=== PATIENT | female | born 1940 | race Caucasian/White ===

== ENCOUNTER 2020-07-27 06:45 | Observation (INO) ==
--- NOTE | 2020-06-30 15:35 | PAT Medication Instructions ---
Medication Instructions Date of Service June 30, 2020 Home Medications amlodipine [Norvasc] 10 mg PO QAM ascorbate calcium (vitamin C) [Aby-C] 500 mg PO QPM aspirin 81 mg PO QPM cholecalciferol (vitamin D3) [Vitamin D3] 125 mcg PO QPM levothyroxine 88 mcg PO QAM magnesium 250 mg PO QPM metformin 500 mg PO QID multivitamin 1 tab PO QPM potassium chloride 20 meq PO QPM rosuvastatin [Crestor] 5 mg PO QPM valsartan [Diovan] 320 mg PO QPM DO NOT take the morning of surgery metformin 500 mg PO QID Take morning of surgery With a small sip of water, OTHERWISE NOTHING TO EAT OR DRINK AFTER MIDNIGHT: amlodipine [Norvasc] 10 mg PO QAM levothyroxine 88 mcg PO QAM Take evening before surgery ascorbate calcium (vitamin C) [Aby-C] 500 mg PO QPM aspirin 81 mg PO QPM cholecalciferol (vitamin D3) [Vitamin D3] 125 mcg PO QPM magnesium 250 mg PO QPM metformin 500 mg PO QID multivitamin 1 tab PO QPM potassium chloride 20 meq PO QPM rosuvastatin [Crestor] 5 mg PO QPM valsartan [Diovan] 320 mg PO QPM Other Notes If you have any questions please call us at [phone] or [phone] or [phone] or [phone]
--- NOTE | 2020-07-03 13:50 | Anesthesiology Consultation ---
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 Denies any recent travel. No known Covid positive contacts or Covid related symptoms. Educated patient to follow up with surgeon's office regarding Covid testing. Educated on importance of self quarantining, social distancing and wearing mask in public both for the patient and household contacts. Teaching & Discussion Pre-Anesthesia Teaching/Discussion Notes: Instructed NPO after midnight before surgery,except medications with 15 cc of water. Medication instructions provided according to the [facility] guidelines. History Surgery Operation Date: 07/27/20 11:55 Proposed Procedures p Right Upper Arm Excision Intramusclar Lipoma - Anthony Dumont M.D. Height/Weight Height: 5 ft 2 in Weight: 73.1 kg Allergies Allergy/AdvReac Type Severity Reaction Status Date / Time succinylcholine Allergy Severe BREATHING Verified 06/29/20 11:56 [From Anectine] STOPPED Sulfa (Sulfonamide Allergy Intermediate Hives Verified 06/29/20 11:56 Antibiotics) Medications Home Medications Medication Instructions Recorded Confirmed Last Taken amlodipine [Norvasc] 10 mg PO QAM 06/29/20 06/29/20 Unknown ascorbate calcium (vitamin C) 500 mg PO QPM 06/29/20 06/29/20 Unknown [Aby-C] aspirin 81 mg PO QPM 06/29/20 06/29/20 Unknown cholecalciferol (vitamin D3) 125 mcg PO QPM 06/29/20 06/29/20 Unknown [Vitamin D3] levothyroxine 88 mcg PO QAM 06/29/20 06/29/20 Unknown magnesium 250 mg PO QPM 06/29/20 06/29/20 Unknown metformin 500 mg PO QID 06/29/20 06/29/20 Unknown multivitamin 1 tab PO QPM 06/29/20 06/29/20 Unknown potassium chloride 20 meq PO QPM 06/29/20 06/29/20 Unknown rosuvastatin [Crestor] 5 mg PO QPM 06/29/20 06/29/20 Unknown valsartan [Diovan] 320 mg PO QPM 06/29/20 06/29/20 Unknown Dulcolax (bisacodyl) See Rx Instructions .ROUTE .COMPLEX 07/03/20 07/03/20 Unk nown Aby-C See Rx Instructions .ROUTE .COMPLEX 07/03/20 07/03/20 Unknown biotin See Rx Instructions .ROUTE .COMPLEX 07/03/20 07/03/20 Unknown [id number] See Rx Instructions .ROUTE .COMPLEX 07/03/20 07/03/20 Unknown Past Medical History Medical History (Updated 07/04/20 @ 09:30 by Greer Reynolds PA-C) Elevated C-reactive protein REASON FOR CRESTOR- DENIES HISTORY OF HYPERLIPIDEMIA Hx of glaucoma STABLE AND CONTROLLED HX: breast cancer 2006 (LEFT/RT BREAST CANCER)- NO CHEMO OR XRT NEEDED Hypertension Hypothyroidism Mitral valve prolapse FOLLOWS WITH [facility] ([facility])- MILD - NO MURMUR - NO MVP NOTED ON 06/2019 ECHO- ONLY MILD TO MODERATE MR Osteoarthritis Prediabetes Scoliosis Exercise / Class Metabolic Activity II 4-5 Yardwork/Stairs/Walk up hill (ONE FLIGHT OF STAIRS - NO CHEST PAIN OR SOB ) Past Family History Family History Brother Family history of diabetes mellitus Grandfather (Paternal) Family history of diabetes mellitus Past Surgical History Surgical History H/O eye surgery RT/LEFT LASER (TREATED FOR ELEVATED PRESSURE) History of anesthesia reaction SEE ALLERGIES History of appendectomy History of bilateral tubal ligation History of colonoscopy History of dilatation and curettage History of mastectomy BILATERAL WITH RECONSTRUCTION (BILATERAL BREAST IMPLANTS) Strabismus REPAIRED LEFT EYE [place] teeth removed Past Anesthesia History No Hx of Anesthesia Complications, No Family Hx of Anesthesia Complications and Pseudocholinesterase Deficiency History of PONV No Hx of PONV and Hx of Motion Sickness (CAR SICKNESS IN THE PAST ) Social History Smoking Status: Never smoker Do You Dip or Chew Tobacco: No Hx Alcohol Use: Yes alcohol intake frequency: holidays/special occasions only Hx Substance Use: No substance use type: does not use Review of Systems Hx of possible blood clot s/p childbirth- no significant AC needed- no issues since Patient denies chest pain, shortness of breath, dyspnea on exertion, reflux, cough, wheezing, palpitations. No hx of seizures, stroke, OR, apnea/snoring. No hx of blood transfusions Physical Exam Vital Signs VITALS BP 148/81 P 59 TEMP 98.0 SP02 97% RESP 16 Constitutional no acute distress ENMT Mouth: no TMJ clicking Thyromental Distance: > or= 3.5 Finger Breadths (3.5) Mallampati Class: II Crowns to molars Neck + limited neck extension (mild ) Respiratory normal respiratory effort; no respiratory distress Auscultation: lungs clear to auscultation bilaterally; no wheezes Cardiovascular Rate/Rhythm: regular rate and regular rhythm Heart Sounds: no murmur Vessels: no carotid bruit Musculoskeletal Spine: no pain with cervical ROM Neurologic moves all extremities Psychiatric Orientation: alert Testing Laboratory Results 07/03/20 14:01 07/03/20 14:01 Hemoglobin A1c 6.0 % (4.5-5.6) H 07/03/20 14:01 Urine Color Yellow 07/03/20 14:01 Urine Appearance Clear (Clear) 07/03/20 14:01 Urine pH 6.5 (4.5-7.5) 07/03/20 14:01 Ur Specific [place] 1.019 (1.000-1.030) 07/03/20 14:01 Urine Protein Negative (Negative) 07/03/20 14:01 Urine Glucose (UA) Negative (Negative) 07/03/20 14:01 Urine Ketones Negative (Negative) 07/03/20 14:01 Urine Nitrite Negative (Negative) 07/03/20 14:01 Ur Leukocyte Esterase Trace (Negative) H 07/03/20 14:01 Urine WBC (Auto) 1-5 /hpf (0-5) 07/03/20 14:01 Urine RBC (Auto) 0-4 /hpf (0-4) 07/03/20 14:01 U Hyaline Cast (Auto) 0 /lpf (0-5) 07/03/20 14:01 U Epithel Cells (Auto) 5-10 /lpf (0-5) H 07/03/20 14:01 Urine Bacteria (Auto) Negative (Negative) 10/12/20 14:01 Electrocardiogram Date: 07/03/20 Findings: + SB @ (56) Voltage criteria for LVH. Echocardiogram Date: 07/09/19 EF: 60% LV Function: normal RWMA: + none MV, AV both mildly thickened. Mild AR. Mild to moderate MR. Other Testing Carotid doppler 10/13/19= Mild right ICA disease with <50% stenosis to proximal ICA. Mild left ICA disease with <50% stenosis to proximal ICA. Vertebral flow was normal. Repeat carotid study in two years
[2020-07-03 14:27] LABS: Basophils # (auto) 0.03 K/uL (0-0.2); Basophils % (auto) 0.3 %; Eosinophils # (auto) 0.18 K/uL (0-0.5); Eosinophils % (auto) 1.9 %; Hematocrit (blood only) 44.3 % (37-47); Hemoglobin 14.6 g/dL (12.0-16.0); Immature Granulocytes # (auto) 0.02 K/uL (0.00-0.02); Immature Granulocytes % (auto) 0.2 %; Lymphocytes # (auto) 2.04 K/uL (1.2-3.4); Lymphocytes % (auto) 21.1 %; Mean Corpuscular Hemoglobin 30.5 pg (25-34); Mean Corpuscular Volume 92.5 fL (80-100); Mean Platelet Volume 10.7 fL (7.4-10.4); Monocytes # (auto) 0.73 K/uL (0.11-0.59); Monocytes % (auto) 7.5 %; Neutrophils # (auto) 6.67 K/uL (1.4-6.5); Platelet Count 264 K/uL (130-400); RDW Standard Deviation 47.6 fL (36.4-46.3); Red Blood Count 4.79 M/uL (4.2-5.4); White Blood Count 9.67 K/uL (4.8-10.8)
[2020-07-03 14:35] LABS: BUN Creatinine Ratio 25.4 (10-20); Calcium 8.8 mg/dl (8.5-10.1); Creatinine Clr Calc Pharmacy 64.8 ml/min; Est GFR (African American) 97.6; Est GFR (Non-African American) 84.2; Potassium 3.6 mmol/L (3.5-5.1)
[2020-07-03 14:36] LABS: Appearance Urine Clear (Clear); Bacteria Urine Automated Negative (Negative); Bilirubin Urine Negative (Negative); Blood Urine Negative (Negative); Cast Urine Automated 0 /lpf (0-5); Color Urine Yellow; Glucose Urine UA Negative (Negative); Ketones Urine Negative (Negative); Leukocyte Esterase Urine Trace (Negative); Nitrite Urine Negative (Negative); Protein Urine Negative (Negative); RBC Urine Automated 0-4 /hpf (0-4); Specific Gravity Urine 1.019 (1.000-1.030); Urobilinogen Urine Negative (Negative); pH Urine 6.5 (4.5-7.5)
--- NOTE | 2020-07-03 16:15 | Electrocardiogram Report ---
Test Reason : Blood Pressure : / mmHG Vent. Rate : 056 BPM Atrial Rate : 056 BPM P-R Int : 174 ms QRS Dur : 082 ms QT Int : 456 ms P-R-T Axes : 055 078 063 degrees QTc Int : 440 ms Sinus bradycardia Voltage criteria for left ventricular hypertrophy Abnormal ECG No previous ECGs available Confirmed by Everton Reveles ([id number]) on 07/03/2020 4:14:40 PM Referred By: Anthony Dumont Confirmed By:Everton Reveles
[2020-07-04 06:30] LABS: Estimated Average Glucose 126 mg/dl
--- NOTE | 2020-07-26 17:10 | History & Physical Report ---
Date of Service July 26, 2020 Assessment & Plan (1) Intramuscular lipoma: She has a very large intramuscular lipoma in her right upper arm that is deep to the biceps muscle and directly adjacent to her neurovascular bundle, including the brachial artery. This seems to have rapidly enlarged over the past few months. This is very bothersome to her, and she would like it removed. I think this is very reasonable, but stressed to her that with the proximity of the neurovascular bundle, there is risk of injury to the structures, and she understands that. We discussed the relative aggressiveness of intramuscular versus subcutaneous lipomas. I do think that this is still benign, but has a little higher risk of local recurrence and rapid enlargement. I think we should do this over the hospital and keep her overnight for drain placement and observation. Risks, benefits, and alternatives of surgery were explained in detail. The surgical procedure, as well as postoperative recovery and rehabilitation, was also explained in detail. Risks include bleeding; infection; damage to surrounding structures such as nerves, blood vessels, and tendons that run in the area; persistent pain, numbness, weakness, or stiffness; mass recurrence; or need for further surgery. The patient understands all of this and wishes to proceed with surgery. Preoperative workup was completed today, and informed consent was obtained. History of Present Illness Chief Complaint: Right upper arm painful enlarging mass Primary Care Provider: Charbel Woodall Ms. Loza is a 80-year-old [id number] female who comes in today for initial evaluation of fullness and a rapidly growing mass in her right upper arm. She had a similar mass on the medial aspect of her right elbow that was excised about 3 years ago in 2017 at [facility]. Reportedly, this was a benign lipoma. It is not clear whether this was intramuscular subcutaneous, but based on her incision and description of the mass, I suspect it was subcutaneous. She then had recurrence of the mass in that area fairly shortly thereafter, and that has not changed much in size. Then over the past few months, she has noted rapidly enlarging fullness in her upper arm. It causes a "pulling" sensation in her upper arm with range of motion, but not a lot of pain. She denies any numbness or weakness in her lower arm or hand. Allergies Allergy/AdvReac Type Severity Reaction Status Date / Time succinylcholine Allergy Severe BREATHING Verified 06/29/20 11:56 [From Anectine] STOPPED Sulfa (Sulfonamide Allergy Intermediate Hives Verified 06/29/20 11:56 Antibiotics) Home Medications Home Medications Medication Instructions Recorded Confirmed Type amlodipine [Norvasc] 10 mg PO QAM 06/29/20 06/29/20 History ascorbate calcium (vitamin C) 500 mg PO QPM 06/29/20 06/29/20 History [Aby-C] aspirin 81 mg PO QPM 06/29/20 06/29/20 History cholecalciferol (vitamin D3) 125 mcg PO QPM 06/29/20 06/29/20 History [Vitamin D3] levothyroxine 88 mcg PO QAM 06/29/20 06/29/20 History magnesium 250 mg PO QPM 06/29/20 06/29/20 History metformin 500 mg PO QID 06/29/20 06/29/20 History multivitamin 1 tab PO QPM 06/29/20 06/29/20 History potassium chloride 20 meq PO QPM 06/29/20 06/29/20 History rosuvastatin [Crestor] 5 mg PO QPM 06/29/20 06/29/20 History valsartan [Diovan] 320 mg PO QPM 06/29/20 06/29/20 History Dulcolax (bisacodyl) See Rx Instructions .ROUTE .COMPLEX 07/03/20 07/03/20 History Aby-C See Rx Instructions .ROUTE .COMPLEX 07/03/20 07/03/20 History biotin See Rx Instructions .ROUTE .COMPLEX 07/03/20 07/03/20 History [id number] See Rx Instructions .ROUTE .COMPLEX 07/03/20 07/03/20 History Past Med/Surg History Medical History (Updated 07/26/20 @ 17:10 by Anthony Dumont M.D.) Elevated C-reactive protein REASON FOR CRESTOR- DENIES HISTORY OF HYPERLIPIDEMIA Hx of glaucoma STABLE AND CONTROLLED HX: breast cancer 2006 (LEFT/RT BREAST CANCER)- NO CHEMO OR XRT NEEDED Hypertension Hypothyroidism Mitral valve prolapse FOLLOWS WITH [facility] (SABATINE)- MILD - NO MURMUR - NO MVP NOTED ON 06/2019 ECHO- ONLY MILD TO MODERATE MR Osteoarthritis Prediabetes Scoliosis Surgical History H/O eye surgery RT/LEFT LASER (TREATED FOR ELEVATED PRESSURE) History of anesthesia reaction SEE ALLERGIES History of appendectomy History of bilateral tubal ligation History of colonoscopy History of dilatation and curettage History of mastectomy BILATERAL WITH RECONSTRUCTION (BILATERAL BREAST IMPLANTS) Strabismus REPAIRED LEFT EYE [place] teeth removed Family History Brother Family history of diabetes mellitus Grandfather (Paternal) Family history of diabetes mellitus Social History Smoking Status: Never smoker Second Hand Exposure: No; Do You Dip or Chew Tobacco: No; Tobacco Cessation Education Requested by Patient: No Hx Alcohol Use: Yes Hx Substance Use: No Preferred Language: Citizen Of [place] School Photographer Required: No Beliefs That Will Affect Care: None Current Living Situation: Spouse Feels Safe at Home: Yes Safety Concerns: Feels Safe At This Time Assistive Devices: Glasses Physical Exam Physical Exam: General: The patient appears well developed and well nourished. Awake, alert, and oriented x 3. Appropriate mood and affect. Normal gait and station. Normal coordination and balance. Skin: The skin over the right upper arm and elbow shows no lesion or erythema. No obvious skin changes over the mass. Inspection/Palpation: Visual inspection reveals enlargement of the anterior medial aspect of the antecubital fossa consistent with a lipoma. This mass is anterior to her previous very small transverse incision more along the medial elbow. She has indistinct fullness of the anterior compartment in her upper arm. There is no palpable elbow joint effusion. No focal tenderness to palpation. Range of Motion: There is full symmetric range of motion of the elbow in flexion/extension and forearm rotation. Stability: There is no gross ligamentous laxity. Strength: There is full strength of the elbow, wrist, and hand. Sensation: The patient reports no numbness in the hand. Motor and sensory function is intact in the median, radial, ulnar, anterior interosseous, posterior interosseous, musculocutaneous, and lateral antebrachial cutaneous nerve distributions. Vascular: Hand is warm and well perfused. No diffuse edema. Results & Data ([facility]) Diagnostic Findings Previous MRI of the right upper arm was reviewed. It shows a very large intramuscular lipoma between the brachialis and biceps muscles. It does look like it is running along the deep surface of the biceps, likely within its fascial compartment. It is directly adjacent and likely adherent to the neurovascular bundle. It does appear to have heterogeneous T1 signal, and no enhancement with contrast, likely indicating a benign pathology. There is a possible second area of lipoma in the anterior medial aspect of the antecubital fossa, but this is indistinct and within the subcutaneous fat. It does appear adjacent to the large intramuscular lipoma. Previous x-rays of the right elbow from June 19 were reviewed. They show what appears to be some disuse osteopenia around the elbow. The large intramuscular lipoma is partially visualized in the anterior aspect of the upper arm. No obvious underlying osseous erosions.
[~2020-07-27 06:45] MED LIST: LR 15ML/HR IV SCH; LR 500ML BOLUS, THEN 15ML/HR IV SCH; ceFAZolin 1000MG 1,000 MG/7.5 ML SYR IV SCH
[2020-07-27] MEDS ORDERED: PROPOFOL IV EMULSION 10 MG/ML 20 ML VIAL IV ONE (07:38)
[2020-07-27] MEDS ORDERED: MIDAZOLAM HCL 1 MG/ML 2ML VIAL ONE (07:38)
[2020-07-27] MEDS ORDERED: LIDOCAINE HCL 2% 2 ML VIAL/AMP(20MG/ML) INFIL ONE (07:38)
[2020-07-27] MEDS ORDERED: DEXAMETHASONE SOD INJ 4 MG/ML VIAL ONE (07:38)
[2020-07-27] MEDS ORDERED: ONDANSETRON INJ 2 MG/ML 2 ML VIAL ONE (07:38)
[2020-07-27] MEDS ORDERED: fentaNYL citrate 100 MCG/2 ML VIAL ONE (07:38)
[2020-07-27] MEDS ORDERED: ROPIVACAINE 0.5% 5 MG/ML 30 ML VIAL ONE (08:08)
--- NOTE | 2020-07-27 08:13 | History & Physical Bridge Note ---
Date of Service July 27, 2020 History & Physical Bridge Note I have examined the patient, reviewed the History & Physical and in the interval since the performance of the History & Physical I have noted the following changes of clinical significance: no changes noted
[2020-07-27] MEDS ORDERED: ePHEDrine sulfate 50 MG/ML SYR ONE (08:58)
[2020-07-27] MEDS ORDERED: ePHEDrine sulfate 50 MG/ML AMP IV PRN (09:21)
[2020-07-27] MEDS ORDERED: fentaNYL citrate 100 MCG/2 ML VIAL IV PRN (09:21)
[2020-07-27] MEDS ORDERED: ATROPINE SULFATE 0.1 MG/ML 10ML SYR IV PRN (09:21)
[2020-07-27] MEDS ORDERED: ONDANSETRON INJ 2 MG/ML 2 ML VIAL IV PRN ×2 (09:21→12:10)
--- NOTE | 2020-07-27 09:56 | Post Operative Brief Note ---
Immediate Post Op Note v1 Date of Surgery July 27, 2020 Pre & Post Diagnosis Operation Date: 07/27/20 08:15 Pre-Op Diagnosis: Right Upper Arm Intramuscular Lipoma Post-Op Diagnosis: 1. Right Upper Arm Intramuscular Lipoma 11 x 6.5 cm 2. Right medial elbow intramuscular lipoma 4 x 3 cm I identified the patient and participated in the time-out.: Yes Procedure Operation Date: 07/27/20 08:15 Actual Procedures 1. Right upper arm excision of intramuscular lipoma 11 x 6.5 cm 2. Right medial elbow excision of intramuscular lipoma 4 x 3 cm - Anthony Dumont M.D. Surgeon Anthony Dumont Medical Insurance Coder Nishant Luther PA-C Estimated Blood Loss 10 Findings Consistent with Post-Op Diagnosis Drains Hemovac Drain
--- NOTE | 2020-07-27 09:58 | Operative Report ---
Post Operative Report Pre & Post Diagnosis Operation Date: 07/27/20 08:15 Pre-Op Diagnosis: Right Upper Arm Intramuscular Lipoma Post-Op Diagnosis: 1. Right upper arm intramuscular lipoma 11 x 6.5 cm (35662) 2. Right medial elbow intramuscular lipoma 4 x 3 cm ([id number]) I identified the patient and participated in the time-out.: Yes Procedure Operation Date: 07/27/20 08:15 Actual Procedures 1. Right upper arm excision of intramuscular lipoma 11 x 6.5 cm 2. Right medial elbow excision of intramuscular lipoma 4 x 3 cm - Anthony Dumont M.D. Surgeon Anthony Dumont Special Education Teacher Nishant Luther PA-C Estimated Blood Loss 10 Findings Consistent with Post-Op Diagnosis Specimens 1. Right upper arm mass consistent with intramuscular lipoma 11 x 6.5 cm 2. Right medial elbow mass consistent with intramuscular lipoma 4 x 3 cm - Anthony Dumont M.D. Drains Medium Hemovac Anesthesia Type General Regional Complications none Disposition Disposition: Recovery Room Indications Ms. Loza is a 80-year old female with a fairly rapidly enlarging mass in her right upper arm. This is causing aching pain and fullness in her arm, but no significant neurologic symptoms. History, clinical exam, and imaging were consistent with the above diagnosis. Risks, benefits, and alternatives of surgery were explained in detail. The patient understood all this and wished to proceed. Description of Procedure Patient was identified in the preoperative holding area. Operative extremity was marked. Regional blockade was given by the Anesthesia Staff. Patient was then brought back to the operating room, and general anesthesia was induced without complication. Appropriate weight-based dose of Ancef was infused intravenously for antibiotic prophylaxis. Arm was then prepped and draped in a standard sterile fashion using Chlorhexidine prep. Sterile tourniquet was placed on the right upper arm. The arm was then exsanguinated with an Esmarch, and the tourniquet was inflated. I first started with the larger upper arm intramuscular lipoma. Longitudinal incision was made over the anteromedial aspect of the upper arm extending from the proximal aspect of the palpable mass just below the level of the pectoralis tendon, and extended distally towards the elbow. I bluntly dissect through subcutaneous tissues down to the deep fascia. The intramuscular lipoma was visible just deep to the muscular fascial layer. The lipoma appeared to be within the biceps fascia. The fascia was opened longitudinally directly at the interval between the lipoma and the biceps muscle anteriorly. Muscle fibers were teased off of the lipoma capsule. I then very carefully circumferentially dissected around the lipoma. This was fairly well encapsulated, with no obvious invasion into the surrounding soft tissues. There were numerous small feeding vessels extending to the lipoma that were sequentially coagulated and divided. Distally, the distal end of the lipoma was fairly clearly demarcated, and did not extend into the medial elbow area. It was not contiguous with the medial elbow lipoma that was later dissected out during the case. On the deep surface of the lipoma, it was directly adherent to the neurovascular bundle, including the brachial artery, basilic vein, and median and ulnar nerves. These were all very carefully protected as I slowly teased the lipoma off of these structures. I carefully continue the dissection from anterior to posterior, and from distal to proximal. The entire mass was then excised in total. It measured 11 cm in length and about 6.5 cm in diameter. I then palpated the separate mass more distally on the medial aspect of the elbow. Again, this clearly was a separate mass from the larger upper arm intramuscular lipoma. The longitudinally incision was extended distally across the medial aspect of the elbow. I again bluntly dissected through the subcutaneous fat layer down to the deep fascia. The separate intramuscular lipoma was then identified along the medial border of the biceps and anterior border of the brachialis musculotendinous junction. This lipoma was directly ad herent to the basilic vein. This actually had much more numerous small feeding vessels into the tumor then the upper arm lipoma. All of these vessels were sequentially coagulated and divided as I dissected circumferentially around the lipoma. This lipoma was also very well encapsulated and not invading into the surrounding soft tissues. The separate lipoma was excised in total, and measured about 4 cm in length and 3 cm in diameter. Both masses were sent for permanent pathologic identification, but both appeared to consistent with benign intramuscular lipomas. Tourniquet was let down and hemostasis was achieved with bipolar electrocautery. Wound was then copiously irrigated with sterile saline. Subcutaneous tissue was closed with 3-0 Vicryl, and skin was closed with 4-0 Prolene. Sterile dressings were then applied with Xeroform, sterile gauze, sterile Webril, and Richard wrap. The drapes were removed, the patient was awakened from anesthesia, and taken to the Post Anesthesia Care Unit in stable condition. There were no immediate complications from the procedure. I was present and scrubbed for the entire procedure. I attest to the content of the Intraoperative Record and any orders documented therein. Any exceptions are noted below.
[2020-07-27] MEDS ORDERED: PHENYLEPHRINE 100MCG/ML 5ML SYR ONE (10:04)
--- NOTE | 2020-07-27 11:26 | Anesthesiology Progress Note ---
Date of Service July 27, 2020 Anesthesia Post Procedure Vital Signs Vital Signs: Temp Pulse Pulse Resp BP Pulse Ox 07/27/20 11:20 67 16 137/71 94 07/27/20 11:05 36.5 C 67 18 139/75 94 07/27/20 10:55 70 16 151/80 H 95 07/27/20 10:45 76 17 144/85 H 93 07/27/20 10:35 71 22 159/82 H 97 07/27/20 10:25 72 19 162/83 H 100 07/27/20 10:19 36.2 C L 78 18 153/83 H 98 07/27/20 09:20 36.4 C L 62 20 160/74 H 99 07/27/20 07:29 36.6 C 69 20 159/79 H 98 Transfer of Care Handoff Completed per policy Notes Mental Status: alert / awake / arousable and participated in evaluation Patient Amnestic to Procedure: Yes Nausea / Vomiting: adequately controlled Pain: adequately controlled Airway Patency, RR, SpO2: stable & adequate BP & HR: stable & adequate Hydration State: stable & adequate Anesthetic Complications: no major complications apparent and Pt Satisfied with anesthetic care Notes: block is functioning well
[2020-07-27] MEDS ORDERED: FEXOFENADINE 60MG/PSEUDOEPHEDRINE 120MG TAB PO PRN (12:10)
[2020-07-27] MEDS ORDERED: oxyCODONE HCL IR 5 MG TAB (IMMEDIATE RELEASE) PO PRN (12:10)
[2020-07-27] MEDS ORDERED: MAGNESIUM HYDROXIDE SUSP 30 ML UDC PO PRN (12:10)
[2020-07-27] MEDS ORDERED: bisacodyL 10 MG SUPP PR PRN (12:10)
[2020-07-27] MEDS ORDERED: METOCLOPRAMIDE HCL INJ 5 MG/ML 2 ML VIAL IV PRN (12:10)
[2020-07-27] MEDS ORDERED: NALOXONE HCL 0.4 MG/1 ML VIAL/CARP IV PRN (12:10)
[2020-07-27] MEDS ORDERED: metFORMIN HCL 500 MG TAB PO SCH (13:00)
[2020-07-27] MEDS: ACETAMINOPHEN 500 MG TAB PO SCH ×2 (13:02→19:22)
[2020-07-27] MEDS: SODIUM CHLORIDE 0.9% 1000ML 1,000 ML IV SCH ×2 (13:09→22:13)
[2020-07-27] MEDS: IBUPROFEN 600 MG TAB PO SCH ×2 (16:35→22:13)
[2020-07-27] MEDS: metFORMIN HCL 500 MG TAB PO SCH (16:36)
[2020-07-27] MEDS: ceFAZolin 1000MG 1,000 MG/7.5 ML SYR IV SCH ×2 (16:36→23:40)
[2020-07-27] MEDS: DOCUSATE SODIUM 100 MG CAP PO SCH (20:23)
[2020-07-27] MEDS ORDERED: ASPIRIN 81 MG ECTAB PO SCH (21:00)
[2020-07-27] MEDS ORDERED: POTASSIUM CHLORIDE 20 MEQ TABCR PO SCH (21:00)
[2020-07-27] MEDS ORDERED: SENNA 8.6 MG TAB PO SCH (21:00)
[2020-07-27] MEDS ORDERED: VALSARTAN 80 MG TAB PO SCH (21:00)
[2020-07-27] MEDS ORDERED: ASCORBIC ACID 500 MG TAB PO SCH (21:00)
[2020-07-27] MEDS ORDERED: CHOLECALCIFEROL 1,000 UNITS 25 MCG TAB PO SCH (21:00)
[2020-07-27] MEDS ORDERED: MULTIVITAMIN TAB PO SCH (21:00)
[2020-07-27] MEDS ORDERED: ROSUVASTATIN CALCIUM 5 MG TAB PO SCH (21:00)
[2020-07-27] MEDS ORDERED: MAGNESIUM OXIDE 400 MG TAB PO SCH (21:00)
[2020-07-28] MEDS: ACETAMINOPHEN 500 MG TAB PO SCH ×2 (00:28→06:20)
[2020-07-28] MEDS: IBUPROFEN 600 MG TAB PO SCH ×2 (04:42→10:00)
[2020-07-28] MEDS ORDERED: LEVOTHYROXINE SODIUM 88 MCG TABLET PO SCH (06:30)
[2020-07-28] MEDS ORDERED: EPINEPHrine INJ 1 MG/ML AMP ONE (06:56)
[2020-07-28] MEDS ORDERED: BUPIVACAINE 0.5 % 5 MG/1 ML MPF 30ML VIAL ONE (06:56)
[2020-07-28] MEDS ORDERED: BACITRACIN INJ 50,000 UNIT VIAL ONE (06:56)
[2020-07-28] MEDS: DOCUSATE SODIUM 100 MG CAP PO SCH (08:25)
[2020-07-28] MEDS: metFORMIN HCL 500 MG TAB PO SCH (08:26)
[2020-07-28] MEDS ORDERED: amLODIPine BESYLATE 5 MG TAB PO SCH (09:00)
[2020-07-28] MEDS ORDERED: MULTIVITAMIN TAB PO SCH (09:00)
--- NOTE | 2020-07-28 09:14 | Discharge Summary ---
Date of Service July 28, 2020 Admission HPI Per Admitting Provider Ms. Loza is a 80-year-old [id number] female who comes in today for initial evaluation of fullness and a rapidly growing mass in her right upper arm. She had a similar mass on the medial aspect of her right elbow that was excised about 3 years ago in 2017 at [facility]. Reportedly, this was a benign lipoma. It is not clear whether this was intramuscular subcutaneous, but based on her incision and description of the mass, I suspect it was subcutaneous. She then had recurrence of the mass in that area fairly shortly thereafter, and that has not changed much in size. Then over the past few manish hs, she has noted rapidly enlarging fullness in her upper arm. It causes a "pulling" sensation in her upper arm with range of motion, but not a lot of pain. She denies any numbness or weakness in her lower arm or hand. Principal Diagnosis Right arm intramuscular lipomas Discharge Data Allergies Allergy/AdvReac Type Severity Reaction Status Date / Time succinylcholine Allergy Severe BREATHING Verified 07/27/20 07:10 [From Anectine] STOPPED Sulfa (Sulfonamide Allergy Intermediate Hives Verified 07/27/20 07:10 Antibiotics) Consultations 07/27/20 12:10 Consult Case Management - Discharge Planning Routine Procedures Performed Operation Date: 07/27/20 08:15 Actual Procedures p Right Upper Arm Excision Intramusclar Lipoma(Right) - Anthony Dumont M.D. Ordered Studies 07/27/20 05:00 US - OR guided needle placemen Routine Hospital Course (1) Intramuscular lipoma: Patient underwent right upper arm and elbow excision of fairly large intramuscular lipomas on the date of admission. Patient tolerated the procedure well and was transferred up to the general orthopedic surgery floor in stable condition. Drain was placed, and kept overnight. Perioperative antibiotic coverage was initiated, and continued for 24 hours postoperatively. DVT prophylaxis was initiated consisting of SCDs. Perioperative pain control regimen was transitioned to strictly oral pain medications by postoperative day 1. On postoperative day 1 the patient was doing very well. Hemovac drain output was minimal, and was therefore pulled. Pain was well controlled, and patient was mobilizing well with therapy. Patient was determined be safe and ready for discharge to home. Total Time Total Time Spent Total Time Spent (In Minutes): 15 Discharge Plan Discharge Items Patient Disposition: Home - Self-Care Reason For Visit: Right Upper Arm Intramuscular Lipoma Discharge Diagnosis: Right arm intramuscular lipoma Activity: Per Instructions section Non-emergency contact: Surgeon Call non-emergency contact if: your pain is not controlled, your temperature is above 101.5, your wound has increased redness and your wound has increased drainage Follow-up/Referrals: Anthony Dumont M.D. [Physician] - Charbel Woodall M.D. [Primary Care Provider] - Diet: Regular Addtl Attending Provider Instructions: Things to Watch Out For -Nausea and sometimes vomiting is common side effect of anesthesia. Go easy with eating for the first day after your surgery. Drink non-carbonated fluids like Gatorade or water. Eat bland foods such as crackers. If these things go down easily, you may progress to more normal foods. -Go to the Emergency Room if you have sudden onset of chest pain, shortness of breath, or uncontrollable pain. -Call the clinic immediately if you have a sudden increase in the amount of wound drainage or the drainage becomes thick, yellow or green, or foul-smelling. -For routine questions, call the clinic at [phone] during regular business hours (8am-5pm). For urgent issues after regular business hours, you may call the clinic to be connected to the on-call physician. Dressings -Keep your dressings clean, dry, and in place for 4 days. After 4 days, you may remove the dressing and cover the incision with a new clean dressing. Be sure to wash your hands thoroughly before touching your incisions. Apply a new dressing daily thereafter. -You may begin showering after your first dressing change (4 days after surgery). You may let the water run BRIEFLY over the incision, but do not soak the incision in the bathtub or pool for 2 weeks. You may also gently clean the incision with mild soap and water; pat the incision dry after cleaning-do not rub the incision. -You may use an antibiotic ointment (Bacitracin, Polysporin) if desired, but this is not necessary. Sling/Activity -Keep your hand elevated and move your fingers, wrist, elbow, and shoulder frequently to reduce swelling and prevent stiffness. -You may wear a sling if needed for comfort, but come out of the sling 4-5 times a day for active range of motion exercises for your shoulder and elbow. Pain Medicines -You have been prescribed an anti-inflammatory (Motrin/ibuprofen) and a non- narcotic pain medicine (Tylenol/acetaminophen). These are your primary pain medications. Take them each every 6 hours as instructed. It is recommended that you stagger these medicines every 3 hours (i.e. take ibuprofen at 8:00 am, then acetaminophen at 11:00 am, then ibuprofen at 2:00 pm, etc). -DO NOT take any additional anti-inflammatories (Advil, Aleve/naproxen, Mobic/meloxicam, Celebrex) or any additional Tylenol/acetaminophen products with these prescribed medications. -You have also been prescribed an additional narcotic pain medication (oxycodone/tramadol). Take this medicine ONLY for breakthrough pain not controlled by the ibuprofen and acetaminophen. -Do not drive or operate heavy machinery while taking the narcotic medication. -Common side effects of narcotic pain medicines include itching, nausea, constipation, and feeling "loopy". However, if you develop a rash or hives, stop taking the medicine and call the clinic. If you develop swelling in your throat or difficulty breathing, go to the Emergency Room or call 911 IMMEDIATELY. -You may take over the counter stool softeners if needed for constipation. Pending Studies at Discharge: No Stand-Alone Forms: My [facility] Medications and DC Order Prescriptions: Continued levothyroxine 88 mcg Tablet 88 mcg PO QAM RF: 0 amlodipine [Norvasc] 10 mg Tablet 10 mg PO QAM RF: 0 valsartan [Diovan] 320 mg Tablet 320 mg PO QPM RF: 0 rosuvastatin [Crestor] 5 mg Tablet 5 mg PO QPM RF: 0 multivitamin Tablet 1 tab PO QPM RF: 0 metformin 500 mg Tablet 500 mg PO QID RF: 0 ascorbate calcium (vitamin C) 500 mg Tablet 500 mg PO QPM RF: 0 magnesium 250 mg Tablet 250 mg PO QPM RF: 0 cholecalciferol (vitamin D3) [Vitamin D3] 125 mcg (5,000 unit) Tablet 125 mcg PO QPM RF: 0 potassium chloride 20 mEq Tablet Extended Release 20 meq PO QPM RF: 0 aspirin 81 mg Capsule,Delayed Release(Dr/Ec) 81 mg PO QPM RF: 0 Dulcolax (bisacodyl) See Rx Instructions .ROUTE .COMPLEX RF: 0 Aby-C See Rx Instructions .ROUTE .COMPLEX RF: 0 biotin See Rx Instructions .ROUTE .COMPLEX RF: 0 [id number] See Rx Instructions .ROUTE .COMPLEX RF: 0 fexofenadine-pseudoephedrine [Rocio-D 12 Hour] 60-120 mg Tablet Extended Release 12 Hr 1 tab PO Q12H PRN (Reason: Allergy Symptoms) RF: 0 Discontinued ibuprofen 200 mg Tablet 200 mg PO Q6H PRN (Reason: Pain) RF: 0 Discharge Orders: Discharge Order (Routine); Ordered 07/28/20 Ordered By: Anthony Jauregui/Other Patient Handouts: Prediabetes, A1C Admission Data Admit Date/Time: 07/27/20 12:06 Attending Provider: Anthony Dumont Admit Provider: Anthony Dumont Primary Care Provider: Charbel Woodall
--- NOTE | 2020-07-28 11:34 | Orthopedic Progress Note ---
Date of Service July 28, 2020 Assessment & Plan (1) Intramuscular lipoma: Postop day #1 status post 1. Right upper arm excision of intramuscular lipoma 11 x 6.5 cm 2. Right medial elbow excision of intramuscular lipoma 4 x 3 cm Pain is controlled today. Hemovac is already been removed and dressing changed. Patient states she is already had her discharge instructions given to her and is awaiting discharge. Discharge today and follow-up with Dr. Dumont in 10 to 14 days. Admission and Anticipated Discharge Date Admission Date: July 27, 2020 Subjective Doing well. States pain is controlled. States her Hemovac was removed earlier today. No complaints and her is present for her to be discharged. Physical Exam Constitutional: WD/WN, vitals as above Musculoskeletal: Shoulder: + surgical incision (Dressing clean/dry/intact right upper arm) Neurologic: normal touch/pain/proprioception Psychiatric: A+Ox3, euthymic affect Speech: normal rate/rhythm/volume of speech Results & Data ([facility]) Vital Signs (Past 12 Hours) Vital Signs Temp Pulse Pulse Resp BP Pulse Ox 07/28/20 09:18 36.6 C 48 L 53 L 16 159/65 H 98 07/28/20 08:36 36.6 C 48 L 16 159/65 H 98 07/28/20 03:42 36.6 C 53 L 16 150/67 H 97 07/28/20 00:00 36.8 C 61 16 147/78 H 96
--- NOTE | 2020-07-28 16:27 | Anesthesiology Progress Note ---
Date of Service July 28, 2020 late entry; pt seen 0730; Anesthesia Post Procedure Vital Signs Vital Signs: Temp Pulse Pulse Resp BP Pulse Ox 07/28/20 09:18 36.6 C 48 L 53 L 16 159/65 H 98 07/28/20 08:36 36.6 C 48 L 16 159/65 H 98 07/28/20 03:42 36.6 C 53 L 16 150/67 H 97 07/28/20 00:00 36.8 C 61 16 147/78 H 96 07/27/20 20:28 36.7 C 07/27/20 20:17 69 149/74 H 97 Pain Intensity Right Arm: Pain Intensity: 0 Notes Mental Status: alert / awake / arousable and participated in evaluation Nausea / Vomiting: adequately controlled Pain: adequately controlled Airway Patency, RR, SpO2: stable & adequate BP & HR: stable & adequate Hydration State: stable & adequate Anesthetic Complications: no major complications apparent and Pt Satisfied with anesthetic care
== END 2020-07-28 11:49 | disposition home or self-care (01) ==
LOC: ASU 06:45 → INTOOBSV 12:06 → 3E 12:06